=== PATIENT | female | born 1985 | race Caucasian/White ===

== ENCOUNTER → 2016-11-25 | Outpatient (CLI) | payer OTHER ==
[~2016-11-25] MED LIST: BCPILLS PO
[2016-11-25 16:59] LABS: URINE APPEARANCE CLOUDY (CLEAR); URINE BILIRUBIN NEG (NEG); URINE COLOR ORANGE; URINE EPITHELIAL CELL AUTO >30 /lpf (0-5); URINE NITRITE POS (NEG); URINE SPECIFIC GRAVITY 1.027 (1.000-1.030); UROBILINOGEN NEG (NEG)
[2016-11-25 17:03] LABS: MANUAL MICROSCOPIC REQUIRED? NO; REVIEW REQ? NO
== END | disposition home or self-care (01) ==
LOC: C.LAB 16:03
PROVIDERS: ATTEND Nurse Practitioner Adult Health
DX: R39.9 Unspecified symptoms and signs involving the genitourinary system (principal)

== ENCOUNTER → 2017-01-21 | Outpatient (CLI) | payer OTHER ==
[~2017-01-21] MED LIST changes: +ALBU18002 INH; +CETI10TA84 PO; +PRENTAB26 PO; +VNTHFA/IN INH
[2017-01-21 15:06] LABS: URINE APPEARANCE CLEAR (CLEAR); URINE BILIRUBIN NEG (NEG); URINE COLOR YELLOW; URINE NITRITE NEG (NEG); URINE PH 5.5 (4.5-7.5); URINE SPECIFIC GRAVITY 1.023 (1.000-1.030); UROBILINOGEN NEG (NEG)
[2017-01-21 15:09] LABS: MANUAL MICROSCOPIC REQUIRED? NO; REVIEW REQ? NO
== END | disposition home or self-care (01) ==
LOC: C.LABSPEC 13:55
PROVIDERS: ATTEND Obstetrics & Gynecology
DX: Z34.90 Encounter for supervision of normal pregnancy, unspecified, unspecified trimester (principal)

== ENCOUNTER → 2017-01-28 | Outpatient (CLI) | payer OTHER ==
[2017-01-28 12:23] LABS: BASO % 0.3 %; BASO ABS # 0.02 K/uL (0-0.2); COMPLETE YES; EOS % 2.4 %; HEMATOCRIT 39.5 % (37-47); IG% 0.3 %; LYMPH % 30.9 %; LYMPH ABS # 2.28 K/uL (1.2-3.4); MEAN CORPUSCULAR HEMOGLOBIN 31.3 pg (25-34); MEAN CORPUSCULAR HGB CONC 35.2 g/dl (32-36); MEAN PLATELET VOLUME 11.7 fL (7.4-10.4); MONO % 6.4 %; NEUT % 59.7 %; PLATELET COUNT 279 K/uL (130-400); RED BLOOD COUNT 4.44 M/uL (4.2-5.4); WHITE BLOOD COUNT 7.39 K/uL (4.8-10.8)
[2017-02-01 00:01] LABS: CHLAMYDIA TRACH RNA*** NOT DETECTED (NOT DETECTED); GC (NEIS GONORRHOEAE)RNA** NOT DETECTED (NOT DETECTED)
== END | disposition home or self-care (01) ==
LOC: C.LAB1850 10:44
PROVIDERS: ATTEND Obstetrics & Gynecology
DX: Z34.90 Encounter for supervision of normal pregnancy, unspecified, unspecified trimester (principal)

== ENCOUNTER → 2017-03-28 | Outpatient (CLI) | payer OTHER ==
[2017-03-28 13:28] LABS: GTGD 50 Grams
== END | disposition home or self-care (01) ==
LOC: C.LAB1850 09:21
PROVIDERS: ATTEND Obstetrics & Gynecology
DX: Z34.90 Encounter for supervision of normal pregnancy, unspecified, unspecified trimester (principal)

== ENCOUNTER → 2017-06-20 | Outpatient (CLI) | payer OTHER ==
[~2017-06-20] MED LIST changes: -ALBU18002 INH; -CETI10TA84 PO; -PRENTAB26 PO; -VNTHFA/IN INH
[2017-06-20 11:18] LABS: URINE APPEARANCE CLEAR (CLEAR); URINE BILIRUBIN NEG (NEG); URINE COLOR DK YELLOW; URINE EPITHELIAL CELL AUTO >30 /lpf (0-5); URINE NITRITE NEG (NEG); URINE SPECIFIC GRAVITY 1.025 (1.000-1.030); UROBILINOGEN NEG (NEG)
[2017-06-20 11:25] LABS: MANUAL MICROSCOPIC REQUIRED? NO; REVIEW REQ? NO
[2017-06-20 12:19] LABS: HEMATOCRIT 35.1 % (37-47)
[2017-06-20 13:10] LABS: GTGD 50 Grams
== END | disposition home or self-care (01) ==
LOC: C.LAB1850 09:37
PROVIDERS: ATTEND Obstetrics & Gynecology
DX: Z34.82 Encounter for supervision of other normal pregnancy, second trimester (principal)

== ENCOUNTER → 2017-08-10 | Outpatient (CLI) | payer OTHER ==
[~2017-08-10] MED LIST changes: +ALBU18002 INH; +CETI10TA84 PO; +PRENTAB26 PO; +VNTHFA/IN INH
== END | disposition home or self-care (01) ==
LOC: C.LABSPEC 17:31
PROVIDERS: ATTEND Obstetrics & Gynecology
DX: Z34.83 Encounter for supervision of other normal pregnancy, third trimester (principal)

== ENCOUNTER 2017-08-12 02:31 | Emergency (ER) | payer OTHER ==
[~2017-08-12] VITALS: Ht 170.2 cm; Wt 105.0 kg
[~2017-08-12 02:31] MED LIST changes: -ALBU18002 INH; -CETI10TA84 PO; -PRENTAB26 PO; -VNTHFA/IN INH
[2017-08-12 02:35] VITALS: TEMP 36.7; Ht 170.2 cm; Wt 105.0 kg
[2017-08-12] MEDS ORDERED: PRENTAB26 PO (02:48)
[2017-08-12] MEDS ORDERED: CETI10TA84 PO (02:48)
[2017-08-12] MEDS ORDERED: VNTHFA/IN INH (02:49)
[2017-08-12 02:55] VITALS: BP 117/79; PULSE 104; O2SAT 99
[2017-08-12] MEDS ORDERED: ALBU18002 INH (02:56)
--- NOTE | 2017-08-12 05:43 | EMERGENCY ROOM VISIT NOTE ---
ED Visit Note First contact with patient: 02:38 CHIEF COMPLAINT: Body Fluid exposure HPI: This 31 yo presents to the Emergency Department for evaluation of a body fluid exposure he was accepting got stuck with a dirty needle. Patient was trying blood and accidentally stuck herself with a needle. The wound has already been cleansed. Bleeding is controlled. They deny numbness, tingling, or loss of motion. Source patient is known and consents to baseline testing. History of the source patient is not known at this time. The patient works at [employer]. They have had the hepatitis B. vaccination, and titers are positive. They believe their tetanus is up-to-date. Pain is 0/10. ALLERGIES: Sulfa, iodine MEDICATIONS: PMH: Asthma SOCIAL HISTORY: No drug use Physical Exam: VITALS: Nursing notes reviewed and vitals are stable. GENERAL: Pleasant female, in no acute distress, well developed, well nourished. SKIN: Warm and dry with good turgor. no abrasions. There is a solitary puncture lucille present at the left second finger. Bleeding is controlled. No edema. Capillary refill is 2+. MUSCULOSKELETAL: Patient has full active range of motion of the finger. Normal strength. NEURO: Gross sensation is intact across the finger. ED COURSE: I examined the patient. Option of HIV, hepatitis C, and hepatitis B testing was discussed with the patient. The risks, benefits, purpose, and limitations of the tests were explained to the patient and all of their questions were answered. They elected to proceed. I did perform pretest counseling and the appropriate consent forms were signed. Patient was given information on prevention of exposure and transmission as well as hospital confidentiality. Blood exposure handout was provided. The patient's blood was drawn. Risks and benefits of HIV prophylaxis were discussed with the patient. The patient elected to not to have HIV prophylaxis at this time. They will follow-up with employee health. Wound care instructions were provided. Baseline HIV testing was done on the patient and is negative. The patient was discharged in stable condition. Impression: #1 Body fluid exposure, needlestick #2 work-related injury Plan: Follow up with employee health for further evaluation, treatment, and test results. Problem List Surgical Problems: (1) H/O LEEP Status: Resolved Current/Historical Medications Scheduled Multivit/Min/Iron/Fol Ac/Pren ( Vitamin), 1 TAB PO DAILY Scheduled PRN Albuterol Sulfate (Proair Respiclick), 2 PUFFS INH QID PRN for SOB/Wheezing Cetirizine (Zyrtec), 10 MG PO DAILY PRN for allergies Allergies Coded Allergies: Clindamycin (Verified Allergy, Unknown, rash, 08/12/17) Iodine (Verified Allergy, Unknown, hives, 08/12/17) Sulfa Antibiotics (Verified Allergy, Unknown, rash, 08/12/17) Vital Signs Date Time Temp Pulse Resp B/P (MAP) Pulse Ox O2 Delivery O2 Flow Rate FiO2 08/12/17 02:55 104 16 117/79 99 Room Air 08/12/17 02:35 36.7 110 20 120/82 98 Room Air Departure Information Referrals Chasity Morrison C.R.NTuanPTuan (PCP) Patient Instructions My [facility]
== END 2017-08-12 03:00 | disposition home or self-care (01) ==
LOC: C.EDB 02:32
DX: Z77.21 Contact with and (suspected) exposure to potentially hazardous body fluids (principal); S61.231A Puncture wound without foreign body of left index finger without damage to nail, initial encounter; J45.909 Unspecified asthma, uncomplicated; W46.1XXA Contact with contaminated hypodermic needle, initial encounter; Y99.0 Civilian activity done for income or pay; Y92.239 Unspecified place in hospital as the place of occurrence of the external cause

== ENCOUNTER 2017-09-07 04:48 | Inpatient (IN) | payer OTHER ==
[~2017-09-07] VITALS: Ht 170.2 cm; Wt 111.0 kg
[~2017-09-07 04:48] MED LIST changes: +ALBU18002 INH; -BCPILLS PO; +CETI10TA84 PO; +PRENTAB26 PO
[2017-09-08] MEDS ORDERED: LACTATED RINGER'S 1000ML 1,000 ML IV PRN (08:19)
[2017-09-08] MEDS ORDERED: LACTATED RINGER'S 1000ML 500 ML IV PRN ×2 (08:19→12:23)
[2017-09-08] MEDS ORDERED: OXYTOCIN 30 UNITS/500ML NSS IV PRN ×2 (08:30→21:45)
[2017-09-08 08:50] LABS: HEMATOCRIT 35.9 % (37-47); MEAN CELL VOLUME 90.2 fL (80-100); MEAN CORPUSCULAR HEMOGLOBIN 29.9 pg (25-34); MEAN CORPUSCULAR HGB CONC 33.1 g/dl (32-36); MEAN PLATELET VOLUME 11.6 fL (7.4-10.4); PLATELET COUNT 224 K/uL (130-400); RED BLOOD COUNT 3.98 M/uL (4.2-5.4); WHITE BLOOD COUNT 12.39 K/uL (4.8-10.8)
[2017-09-08 09:00] VITALS: Ht 170.2 cm; Wt 111.0 kg
[2017-09-08] MEDS: LACTATED RINGER'S 1000ML 1,000 ML IV SCH ×3 (10:00→17:55)
[2017-09-08] MEDS ORDERED: EpHEDrine SULFATE INJ 50 MG/ML AMP ONE ×2 (11:12→19:16)
[2017-09-08] MEDS ORDERED: FENTANYL 2MCG/ML ROPIV 1.25MG/ML 100ML BAG EPI ONE ×2 (11:12→19:16)
[2017-09-08] MEDS ORDERED: BUPIVACAINE 0.25% 30 ML VIAL ONE ×2 (11:12→19:16)
[2017-09-08] MEDS ORDERED: FENTANYL CITRATE INJ 50 MCG/1 ML 2 ML VIAL ONE ×2 (11:13→19:17)
[2017-09-08] MEDS ORDERED: NALOXONE HCL INJ 1 MG in SODIUM CHLORIDE 0.9% 1000ML 1,000 ML IV PRN (12:23)
[2017-09-08] MEDS ORDERED: ONDANSETRON INJ 2 MG/ML 2 ML VIAL IV PRN (12:30)
[2017-09-08] MEDS ORDERED: NALOXONE HCL INJ 0.4 MG/1 ML VIAL/CARP IV PRN (12:30)
[2017-09-08] MEDS ORDERED: EpHEDrine SULFATE INJ 50 MG/ML AMP IV PRN (12:30)
[2017-09-08] MEDS ORDERED: DiphenhydrAMINE HCL 50 MG/ML VIAL IV PRN (12:30)
[2017-09-08] MEDS ORDERED: NALBUPHINE HCL INJ 10 MG/ML AMP IV PRN (12:30)
[2017-09-08] MEDS: FENTANYL 2MCG/ML ROPIV 1.25MG/ML 100ML BAG EPI PRN ×2 (18:52→19:27)
[2017-09-08] MEDS ORDERED: HYDROCORTISONE ACETATE 25 MG SUPP PR PRN (21:45)
[2017-09-08] MEDS ORDERED: LANOLIN OINT EXT PRN ×2 (21:45)
[2017-09-08] MEDS ORDERED: BENZOCAINE 20% AER SPR 82.5 GM CAN EXT PRN (21:45)
[2017-09-08] MEDS ORDERED: DIPHTHERIA/TETANUS/PERTUSSIS 0.5 ML SYR/VIAL IM. ONE (21:45)
[2017-09-08] MEDS ORDERED: ACETAMINOPHEN 325 MG TAB PO PRN (21:45)
[2017-09-08] MEDS ORDERED: SUPERCREAM 0.870 % 15GM JAR EXT PRN (21:45)
--- NOTE | 2017-09-08 22:19 | Anesthesia Procedure Note ---
Anesthesia Epidural Removal Nt Date & Time Sep 08, 2017 at 22:18 Vital Signs Pain Intensity: 0.0 Notes Mental Status: alert / awake / arousable, participated in evaluation Nausea / Vomiting: adequately controlled Pain: adequately controlled Airway Patency, RR, SpO2: stable & adequate BP & HR: stable & adequate Hydration State: stable & adequate Neuraxial Anesthesia: was administered, sensory block is resolving Anesthetic Complications: no major complications apparent, pt satisfied with anesthetic care Epidural: removed without complications, with tip intact
--- NOTE | 2017-09-08 23:03 | DELIVERY SUMMARY ---
DATE OF OPERATION: 09/08/2017 PREOPERATIVE DIAGNOSES: 1. Intrauterine at 40-1/7 weeks. 2. History of previous ksnpc-gec-odjdgnemxfy-age baby. 3. History of previous shoulder dystocia in prior . 4. History of hemorrhage in previous . POSTOPERATIVE DIAGNOSES: Same. PROCEDURE: 1. Pitocin augmentation. 2. Spontaneous rupture of membranes. 3. Epidural anesthesia. 4. Normal spontaneous vaginal delivery. SURGEON: Bobbi Gudino MD. ANESTHESIA: Epidural. ESTIMATED BLOOD LOSS: 350 mL DESCRIPTION OF PROCEDURE: The patient presented to labor and delivery at 3:50, -2, soft and mid. She was begun on Pitocin augmentation. She underwent spontaneous rupture of membranes for clear fluid. When she was uncomfortable, she underwent an epidural anesthesia. Through the course of the labor, she had an IUPC placed to adequately dose Pitocin and a scalp electrode to better monitor the heart rate. She then progressed to complete-complete and +2 station, pushed over 2 contractions to deliver a viable female infant in direct occiput posterior presentation that restituted to MABEL. The anterior shoulder and body were then immediately and easily delivered. There was an immediate cry. The nose and mouth were bulb suctioned. The was placed on the maternal abdomen for drying and attention. At 1 minute of life, the cord was clamped and cut. Cord blood and segment were obtained. Placenta was delivered spontaneously intact with a 3-vessel cord. Cervix, sulci, rectum and perineum were all examined and found to be intact. Hemostasis obtained with dilute Pitocin and fundal massage. Estimated blood loss 350 mL. Apgars 8 and 9, weight pending. Mother and baby doing well at the end of the delivery. I attest to the content of the Intraoperative Record and any orders documented therein. Any exception s are noted below.
[2017-09-08] MEDS: IBUPROFEN 600 MG TAB PO PRN (23:05)
[2017-09-08 23:45] VITALS: BP 113/72; PULSE 96; TEMP 36.6
[2017-09-09] MEDS: OXYCODONE/ACETAMINOPHEN 5-325 TAB PO PRN ×3 (02:53→21:29)
[2017-09-09 04:30] VITALS: BP 106/71; PULSE 73; TEMP 36.5
[2017-09-09 06:53] LABS: HEMATOCRIT 32.7 % (37-47)
--- NOTE | 2017-09-09 07:02 | OB/GYN Progress Note ---
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 Subjective conversation w/ patient, physical exam, chart review, lab review Ambulation: ambulating normally Voiding: no voiding problems Passing Gas: Yes Diet Tolerance: Regular Diet Lochia: Small Feeding Type: Breast Feeding Pain: mild pain Review of Systems Constitutional: No fever, No chills Respiratory: No shortness of breath Cardiac: No chest pain Abdomen: No nausea, No vomiting Female : No dysuria Objective Vital Signs Date Time Temp Pulse Resp B/P (MAP) Pulse Ox O2 Delivery O2 Flow Rate FiO2 09/09/17 04:30 36.5 73 20 106/71 (83) 09/08/17 23:45 36.6 96 20 113/72 (86) Physical Exam General Appearance: WELL-APPEARING Respiratory/Chest: lungs clear, normal breath sounds Cardiovascular: regular rate, rhythm Abdomen: normal bowel sounds, non tender, soft Fundus: Firm, Relation to Umbilicus (1 FB below) Extremities: non-tender, no pedal edema Laboratory Results Last 24 Hours Test 09/08/17 08:30 09/09/17 06:34 White Blood Count 12.39 K/uL Red Blood Count 3.98 M/uL Hemoglobin 11.9 g/dL 10.9 g/dL Hematocrit 35.9 % 32.7 % Mean Corpuscular Volume 90.2 fL Mean Corpuscular Hemoglobin 29.9 pg Mean Corpuscular Hemoglobin Concent 33.1 g/dl RDW Standard Deviation 46.3 fL RDW Coefficient of Variation 14.2 % Platelet Count 224 K/uL Mean Platelet Volume 11.6 fL Assessment and Plan Day Number: 1 Continue Routine Care: A/P: This is a 31 y/o female, , s/p [normal vaginal delivery] day 1. She is ambulating and clinically stable. Plan: - Vitals signs are reviewed and WNL (Tmax 36.5 ) - Last Hgb is 10.9 - Blood type A+, GBS neg, Rubella Immune - Routine care - Encourage ambulation, monitor and control pain with medication as needed, continue with regular diet as tolerated and monitor lochia - Stool softeners and sitz bath recommended - Encourage breast feeding and educate about breast feeding Resident Physician Supervision Note: I interviewed and examined the patient. Discussed with Dr. James and agree with findings and plan as documented in the note. Any exceptions or clarifications are listed here: Doing well, routine care. Documented By: Bobbi Gudino Resident Involvement: Resident Care Provided Care Provided: OB Delivery
--- NOTE | 2017-09-09 07:07 | Discharge Instructions ---
Discharge Instructions Date of Service Sep 09, 2017. Admission Reason for Admission: Induction Discharge Discharge Diagnosis / Problem: after vaginal delivery Discharge Goals Goal(s): Routine recovery after delivery Medications Continue Dispensed Medications: supercream, dermaplast, tucks, lansinoh Activity Recommendations Activity Limitations: per Instructions/Follow-up section . Instructions / Follow-Up Instructions / Follow-Up ACTIVITY RECOMMENDATIONS: * Gradual return to full activity over the next 2-3 weeks. * No lifting - nothing heavier than baby over the next 2-3 weeks. * Do not engage in vigorous exercise, sexual activity or sports until cleared by your physician. * Do not drive or operate any motorized equipment until cleared by your physician. * You may shower/bathe daily. MEDICATIONS: For discomfort or pain, you may use Acetaminophen (Tylenol), Ibuprofen (Advil), or Naproxen (Aleve) following the package directions. For constipation you may use Colace following the package directions. BREAST CARE: If you are not breast feeding: * Wear a supportive bra 24 hours a day for one to two weeks. * Avoid stimulating your breasts and nipples as much as possible during the first few weeks after delivery. * When taking a shower, have the warm water hit your back, not breasts. * When your breasts feel full, apply ice packs. Usually three to four times a day helps ease the discomfort. * Take a mild pain medication (Tylenol / Motrin) when you are uncomfortable. If breast feeding: * Use breast milk to lubricate nipples. Lansinoh cream may be used for sore nipples. You do not need to remove cream prior to breast feeding. If using a different brand of cream, check the label for directions regarding removal of cream prior to nursing. * Wear a supportive bra. * If having problems with breasts or breast feeding, call a database reporting consultant or your health care provider. EPISIOTOMY CARE: After delivery, if you have an episiotomy (stitches), the following steps will ease discomfort and aid healing. * For the first 24 hours after delivery, place ice packs next to your episiotomy to help reduce swelling. * After the first 24 hour-period, sitz baths, either portable or in the tub, are suggested. A shower with a shower arm sprayed over the episiotomy may be comforting. * Rosa Maria care should be done after each voiding and bowel movement. Squirt warm water from a plastic bottle over the perineum (region of the body between the anus and urinary opening) and pat dry. * Use Dermoplast to ease discomfort. Shake container. [place] directly over the episiotomy. Place a Tucks on a clean sanitary pad next to your episiotomy. SPECIAL CARE INSTRUCTIONS: When you are discharged from the hospital, it is important for you to follow the instructions listed below: * During the first week at home, you should be able to care for yourself and your baby. In addition, the usual light household activities are encouraged. * Limit your activities to the way you feel. Do not try to clean the house or move furniture. Be sensible. * If you actively engage in sports and have done so up until the time of your delivery, you may resume these activities as soon as you feel able. This may take up to one month or even longer. Use good judgment. * Continue to take your vitamins for at least six weeks after the of your baby. * Your diet need not be limited unless you were on a special diet before your delivery. Breast-feeding mothers need around 2500 calories per day and at least 64-80 ounces of fluid per day (8 to 10 glasses). * You should eat foods from the four major food groups. Crash diets or fad diets are to be avoided. Eating lean meats, fresh fruits and vegetables, low-fat dairy products, high fiber foods and a regular exercise program, will help you get back to your pre- weight without putting your health at risk. * Constipation is sometimes a problem after delivery. Take a mild laxative as needed. If breast feeding, Milk of Magnesia is acceptable to use. You may use a suppository or Fleets enema if no episiotomy. * A daily shower or tub bath is suggested. Be sure to thoroughly and gently dry the perineum. * A bloody vaginal discharge will usually continue until around four weeks post . A small amount of bleeding may continue for as long as six weeks. Vaginal discharge changes from the bright red bleeding after delivery to pink then brownish and finally yellowish-pink before becoming white and disappearing. * Bleeding may increase with activity. Your first period may come in 4-8 weeks. If you are breast feeding, your period may be delayed even longer. * [place] (sex) can begin whenever both you and your partner feel comfortable and do not have any form of genital infection. It is recommended that you wait at least six weeks for internal and external healing to occur. If you have questions, please talk to your health care practitioner. A condom should be used to prevent infection and . * Foreplay, gentle intercourse and lubrication is very important the first several times to prevent pain. A water-based lubricant such as K-Y jelly or Astroglide may be used. * If you have RH negative blood and your baby is RH positive, you will receive RHOGAM by injection prior to discharge. The nurse will give you a card to keep with you that has the date and place that you received RHOGAM after delivery. * During your care, you had a Rubella screen done to check for the presence of rubella antibodies in your blood. If your test was negative, you will receive a Rubella vaccine prior to discharge. This vaccine may cause a fever, soreness at the injection site and flu-like symptoms. If these symptoms persist, notify your health care practitioner. is not advised for one month after a Rubella vaccine. * Verbalizes understanding of car seat law as reviewed with patient nursing. * Car Seat hand-out given and reviewed with patient by nursing. * Shaken baby information reviewed with patient by nursing. Call you doctor if: * Heavy bleeding (saturating several pads an hour) or passing clots the size of your fist. * A fever >101 degrees F (38.3 degrees C) on two occasions four hours apart and /or chills. * Unusual pain in the pelvic or vaginal areas. * "Baby Blues" lasting longer than two weeks. If you have any questions or concerns, call your health care practitioner at . FOLLOW UP VISIT: * Please call the office at to schedule a 6 week examination. It is important you keep this appointment. It is important for you to make arrangements for either yearly or twice yearly check-ups thereafter. Current Hospital Diet Patient's current hospital diet: Regular OB Diet Discharge Diet Recommended Diet: Regular Diet Pending Studies Studies pending at discharge: no Medical Emergencies . Who to Call and When: Medical Emergencies: If at any time you feel your situation is an emergency, please call 911 immediately. . Non-Emergent Contact Non-Emergency issues call your: Transmission Line Engineer Call Non-Emergent contact if: temperature is above 101, your pain is not controlled . . "Provider Documentation" section prepared by Sowmya James. . VTE Core Measure Inpt VTE Proph given/why not?: Treatment not indicated
[2017-09-09 07:18] VITALS: BP 109/73; PULSE 84; TEMP 36.6; O2SAT 96
[2017-09-09] MEDS: PRENATAL VITAMIN TAB PO SCH (08:32)
[2017-09-09] MEDS: DOCUSATE SODIUM 100 MG CAP PO SCH ×2 (08:32→20:08)
[2017-09-09] MEDS: IBUPROFEN 600 MG TAB PO PRN ×3 (08:33→20:09)
[2017-09-09 11:45] VITALS: BP 106/70; PULSE 67; TEMP 36.4; O2SAT 97
[2017-09-09 16:15] VITALS: BP 100/61; PULSE 72; TEMP 36.8
[2017-09-09 20:15] VITALS: BP 107/69; PULSE 92; TEMP 36.6
[2017-09-09 23:45] VITALS: BP 96/66; PULSE 89; TEMP 36.6
[2017-09-10] MEDS: IBUPROFEN 600 MG TAB PO PRN ×2 (02:14→08:14)
[2017-09-10] MEDS: OXYCODONE/ACETAMINOPHEN 5-325 TAB PO PRN (02:16)
[2017-09-10 07:40] VITALS: BP 118/79; PULSE 76; O2SAT 97
--- NOTE | 2017-09-10 07:41 | Progress Note ---
Subjective Sep 10, 2017. Subjective conversation w/ patient, physical exam, chart review Ambulation: ambulating normally Voiding: no voiding problems Diet Tolerance: Regular Diet Lochia: Small Feeding Type: Breast Feeding Objective Vital Signs Date Time Temp Pulse Resp B/P (MAP) Pulse Ox O2 Delivery O2 Flow Rate FiO2 09/09/17 23:45 Room Air 09/09/17 23:45 36.6 89 18 96/66 (76) Room Air 09/09/17 20:15 36.6 92 16 107/69 (82) Room Air 09/09/17 16:15 36.8 72 18 100/61 (74) Room Air 09/09/17 16:15 Room Air 09/09/17 11:45 36.4 67 18 106/70 (82) 97 Room Air 09/09/17 07:45 Room Air Physical Exam General Appearance: WELL-APPEARING Abdomen: non tender Fundus: Firm Extremities: no calf tenderness Assessment and Plan Problem List Medical Problems: (1) Needlestick injury accident with exposure to body fluid Status: Acute (2) Work related injury Status: Acute Post- Day#: 2 Continue Routine Care: home
[2017-09-10] MEDS: PRENATAL VITAMIN TAB PO SCH (08:12)
[2017-09-10] MEDS: DOCUSATE SODIUM 100 MG CAP PO SCH (08:12)
[2017-09-10 09:46] VITALS: BP_DIAS 79; PULSE 76; TEMP 36.6
== END 2017-09-10 10:18 | disposition home or self-care (01) | DRG 775 ==
LOC: C.LD 09-08 07:46 → C.OBG 09-08 23:41
PROVIDERS: ADMIT Obstetrics & Gynecology; ATTEND Obstetrics & Gynecology
PROC: 10H073Z Insertion of Monitoring Electrode into Products of Conception, Via Natural or Artificial Opening (ICD-10-PCS; principal; 2017-09-08)
PROC: 4A1H7CZ Monitoring of Products of Conception, Cardiac Rate, Via Natural or Artificial Opening (ICD-10-PCS; principal; 2017-09-08)
PROC: 10E0XZZ Delivery of Products of Conception, External Approach (ICD-10-PCS; principal; 2017-09-08)
DX: O80 Encounter for full-term uncomplicated delivery (principal); Z3A.40 40 weeks gestation of pregnancy; Z37.0 Single live birth; Z87.59 Personal history of other complications of pregnancy, childbirth and the puerperium

== ENCOUNTER → 2017-10-25 | Outpatient (CLI) | payer OTHER ==
[~2017-10-25] MED LIST changes: +BCPILLS PO
== END | disposition home or self-care (01) ==
LOC: C.PAPS 14:12
PROVIDERS: ATTEND Obstetrics & Gynecology
DX: Z01.419 Encounter for gynecological examination (general) (routine) without abnormal findings (principal)

== ENCOUNTER 2018-06-13 02:27 | Emergency (ER) | payer OTHER ==
[~2018-06-13] VITALS: Ht 170.2 cm; Wt 95.0 kg
[~2018-06-13 02:27] MED LIST changes: -BCPILLS PO
[2018-06-13 02:30] VITALS: TEMP 36.6; Ht 170.2 cm; Wt 95.0 kg
--- NOTE | 2018-06-13 02:48 | EMERGENCY ROOM VISIT NOTE ---
History Report prepared by Lupe: Kamaljit Alvarado Under the Supervision of: Dr. Germaine Bass D.O. First contact with patient: 02:39 Chief Complaint: ABDOMINAL PAIN Stated Complaint: ABD PAIN History of Present Illness The patient is a 32 year old female who presents to the Emergency Room with complaints of right sided and lower abdominal pain that began on Tuesday, 4 days ago. The patient states that the pain started as a lower abdominal "cramping" and intermittent right sided "sharp" sensations. Yesterday morning the pain on the right side became a constant "stabbing." She is nauseous, but has not vomited. She also denies diarrhea and fevers. The patient has lost some appetite. She is 9 months and her menstrual cycles are irregular. Source of History: patient Onset: 4 days ago Position: abdomen (Lower and right) Quality: sharp, stabbing, cramping Timing: constant Associated Symptoms: + nausea, No fevers, No vomiting, No diarrhea Review of Systems See HPI for pertinent positives & negatives. A total of 10 systems reviewed and were otherwise negative. Past Medical & Surgical Medical Problems: (1) 40 weeks gestation of Surgical Problems: (1) H/O LEEP Family History Cancer Diabetes mellitus Heart disease Hypertension Social History Smoking Status: Never Smoker Drug Use: none Marital Status: Housing Status: lives with family Occupation Status: employed Current/Historical Medications Scheduled Control Pills ( Control Pills), 1 TAB PO DAILY Allergies Coded Allergies: Clindamycin (Verified Allergy, Unknown, rash, 06/13/18) Iodine (Verified Allergy, Unknown, hives, 06/13/18) Sulfa Antibiotics (Verified Allergy, Unknown, rash, 06/13/18) Physical Exam Vital Signs Date Time Temp Pulse Resp B/P (MAP) Pulse Ox O2 Delivery O2 Flow Rate FiO2 06/13/18 04:32 69 16 112/69 99 06/13/18 04:05 69 16 112/69 99 Room Air 06/13/18 02:30 36.6 84 18 134/87 99 Room Air Physical Exam HEENT: Head - normocephalic and atraumatic Pupils are equal, round, and reactive to light. Extraocular eye muscles are intact, and sclera are anicteric. Nose - moist nasal mucosa without discharge. Mouth - moist buccal mucosa. Oropharynx is nonerythematous and there is no tonsillar exudate or edema noted. Neck: Supple; no JVD, nuchal rigidity, cervical lymphadenopathy. Heart: Regular rate and rhythm. There is a normal S1 and S2 with no murmurs, clicks, or gallops appreciated. Lungs: Clear to auscultation bilaterally with no wheezes, rales, or rhonchi. Abdomen: Soft, with McBurney's point tenderness. Nondistended, with good bowel sounds. There are no palpable pulsatile masses or hepatosplenomegaly. There is no guarding, rigidity, or rebound noted. Extremities: No evidence of cyanosis, clubbing, or edema. There are easily palpable peripheral pulses. Skin: warm and dry with good turgor and no rashes. Medical Decision & Procedures ER Provider Diagnostic Interpretation: Radiology results as stated below per my review and the radiologist's interpretation: US APPENDIX: A blind-ending tubular structure is noted int he right lower quadrant in the region in the region of reported pain consistent with a normal caliber appendix measuring 5 mm in diameter. No definitive sonographic evidence for acute appendicitis. Please correlate with clinical and laboratory findings. Minimal free fluid in the right lower quadrant incidentally noted. Radiologist: Nahid Rothman MD Laboratory Results 06/13/18 02:45 Red Blood Count 4.76, Mean Corpuscular Volume 89.1, Mean Corpuscular Hemoglobin 31.1, Mean Corpuscular Hemoglobin Concent 34.9, Mean Platelet Volume 11.2, Neutrophils (%) (Auto) 51.1, Lymphocytes (%) (Auto) 40.2, Monocytes (%) (Auto) 5.0, Eosinophils (%) (Auto) 3.3, Basophils (%) (Auto) 0.2, Neutrophils # (Auto) 4.96, Lymphocytes # (Auto) 3.90, Monocytes # (Auto) 0.49, Eosinophils # (Auto) 0.32, Basophils # (Auto) 0.02 06/13/18 02:45 Test 06/13/18 02:45 White Blood Count 9.71 K/uL (4.8-10.8) Red Blood Count 4.76 M/uL (4.2-5.4) Hemoglobin 14.8 g/dL (12.0-16.0) Hematocrit 42.4 % (37-47) Mean Corpuscular Volume 89.1 fL (80-100) Mean Corpuscular Hemoglobin 31.1 pg (25-34) Mean Corpuscular Hemoglobin Concent 34.9 g/dl (32-36) Platelet Count 254 K/uL (130-400) Mean Platelet Volume 11.2 fL (7.4-10.4) Neutrophils (%) (Auto) 51.1 % Lymphocytes (%) (Auto) 40.2 % Monocytes (%) (Auto) 5.0 % Eosinophils (%) (Auto) 3.3 % Basophils (%) (Auto) 0.2 % Neutrophils # (Auto) 4.96 K/uL (1.4-6.5) Lymphocytes # (Auto) 3.90 K/uL (1.2-3.4) Monocytes # (Auto) 0.49 K/uL (0.11-0.59) Eosinophils # (Auto) 0.32 K/uL (0-0.5) Basophils # (Auto) 0.02 K/uL (0-0.2) RDW Standard Deviation 43.4 fL (36.4-46.3) RDW Coefficient of Variation 13.2 % (11.5-14.5) Immature Granulocyte % (Auto) 0.2 % Immature Granulocyte # (Auto) 0.02 K/uL (0.00-0.02) Urine Color YELLOW Urine Appearance CLEAR (CLEAR) Urine pH 5.0 (4.5-7.5) Urine Specific [place] 1.025 (1.000-1.030) Urine Protein NEG (NEG) Urine Glucose (UA) NEG (NEG) Urine Ketones NEG (NEG) Urine Occult Blood NEG (NEG) Urine Nitrite NEG (NEG) Urine Bilirubin NEG (NEG) Urine Urobilinogen NEG (NEG) Urine Leukocyte Esterase NEG (NEG) Urine Test NEG (NEG) Anion Gap 10.0 mmol/L (3-11) Est Creatinine Clear Calc Drug Dose 119.5 ml/min Estimated GFR () 113.1 Estimated GFR (Non- 97.6 BUN/Creatinine Ratio 17.1 (10-20) Calcium Level 8.6 mg/dl (8.5-10.1) Total Bilirubin 0.3 mg/dl (0.2-1) Direct Bilirubin < 0.1 mg/dl (0-0.2) Aspartate Amino Transf (AST/SGOT) 15 U/L (15-37) Alanine Aminotransferase (ALT/SGPT) 27 U/L (12-78) Alkaline Phosphatase 95 U/L (45-117) Total Protein 8.8 gm/dl (6.4-8.2) Albumin 4.2 gm/dl (3.4-5.0) Lipase 144 U/L (73-393) Laboratory results per my review. ED Course 0239: Past medical records reviewed. The patient was evaluated in room B2. A complete history and physical exam was performed. An IV lock was initiated and labs were drawn as above. A urine specimen was obtained. She went for ultrasound of the right lower quadrant of the abdomen. 0327: I checked on the patient at this time. She is feeling well and does not want anything for pain. 0421: I checked on the patient at this time. She is comfortable and awaiting US results. 0434: Upon reevaluation, the patient is resting in bed. I discussed findings and results with her. She verbalized agreement of the treatment plan. The patient was discharged home. Medical Decision The patient is a 32 year old female who presents to the Emergency Department with lower and right sided abdominal pain. Differential diagnosis includes appendicitis, ectopic, colitis, pyelonephritis, cystitis, renal colic, and ovarian torsion. Laboratory results were reviewed and show; normal renal function, normal glucose , normal LFTs and Lipase, no leukocytosis, and stable H&H. Urinalysis was reviewed and shows; negative . The patient remained comfortable while here in the emergency department. Ultrasound shows no acute evidence of appendicitis. I instructed the patient to rest over the next couple of days and avoid strenuous activity. If her symptoms worsen, she is to return here to the emergency department. If the pain persists, she should follow-up with her PCP. Medication Reconcilliation Current Medication List: was personally reviewed by me Blood Pressure Screening Patient's blood pressure: Normal blood pressure Impression Primary Impression: Right lower quadrant abdominal pain Scribe Attestation The scribe's documentation has been prepared under my direction and personally reviewed by me in its entirety. I confirm that the note above accurately reflects all work, treatment, procedures, and medical decision making performed by me. Departure Information Dispostion Home / Self-Care Referrals Chasity Morirson C.R.N.P. (PCP) Forms Call Back Authorization, HOME CARE DOCUMENTATION FORM, IMPORTANT VISIT INFORMATION Patient Instructions My [facility] [employer] Additional Instructions Rest. Take a bland diet. No strenuous activity for next couple of days Motrin for pain Return to the ER for worsening symptoms
[2018-06-13 02:58] LABS: BASO % 0.2 %; BASO ABS # 0.02 K/uL (0-0.2); EOS % 3.3 %; EOS ABS # 0.32 K/uL (0-0.5); HEMATOCRIT 42.4 % (37-47); HEMOGLOBIN 14.8 g/dL (12.0-16.0); IG# 0.02 K/uL (0.00-0.02); LYMPH % 40.2 %; MEAN CELL VOLUME 89.1 fL (80-100); MEAN CORPUSCULAR HEMOGLOBIN 31.1 pg (25-34); MEAN CORPUSCULAR HGB CONC 34.9 g/dl (32-36); MEAN PLATELET VOLUME 11.2 fL (7.4-10.4); MONO ABS # 0.49 K/uL (0.11-0.59); NEUT % 51.1 %; NEUT ABS # 4.96 K/uL (1.4-6.5); PLATELET COUNT 254 K/uL (130-400); RED CELL DISTRIBUTION WIDTH CV 13.2 % (11.5-14.5); RED CELL DISTRIBUTION WIDTH SD 43.4 fL (36.4-46.3); WHITE BLOOD COUNT 9.71 K/uL (4.8-10.8)
[2018-06-13 03:18] LABS: ALBUMIN 4.2 gm/dl (3.4-5.0); ALKALINE PHOSPHATASE 95 U/L (45-117); ALT/SGPT 27 U/L (12-78); AST/SGOT 15 U/L (15-37); BLOOD UREA NITROGEN 14 mg/dl (7-18); CALCIUM 8.6 mg/dl (8.5-10.1); CARBON DIOXIDE 23 mmol/L (21-32); GLUCOSE 72 mg/dl (70-99); LIPASE 144 U/L (73-393); POTASSIUM 3.6 mmol/L (3.5-5.1); SODIUM 140 mmol/L (136-145); TOTAL PROTEIN 8.8 gm/dl (6.4-8.2)
[2018-06-13] MEDS ORDERED: BCPILLS PO (04:02)
[2018-06-13 04:32] VITALS: BP 112/69; PULSE 69; O2SAT 99
--- NOTE | 2018-06-13 07:01 | DIAGNOSTIC IMAGING REPORT ---
ABDOMEN LIMITED (US) HISTORY: 32 years-old Female RLQ - eval for appy acute right lower quadrant abdominal pain COMPARISON: CT abdomen and pelvis 06/07/2015 TECHNIQUE: Multiple real-time significant images of the abdominal right lower quadrant were obtained assessing grayscale appearance and color flow FINDINGS: Blind-ending tubular structure is noted within the abdominal right lower quadrant suggesting a normal appendix measuring 5 mm in diameter. No appendiceal wall thickening. No drainable fluid collections, echogenic fat or hyperemia. No adenopathy. Incidental note is made of trace nonspecific free fluid within the abdominal right lower quadrant. IMPRESSION: 1. Normal sonographic appearance of the appendix without evidence of acute appendicitis. 2. Incidental note is made of nonspecific trace free fluid within the abdominal right lower quadrant. The above report was generated using voice recognition software. It may contain grammatical, syntax or spelling errors. Electronically signed by: Rikki Causey M.D. 06/13/2018 6:59 AM Dictated Date/Time: 06/13/2018 6:57 AM
== END 2018-06-13 04:33 | disposition home or self-care (01) ==
LOC: C.EDB 02:28
DX: R10.31 Right lower quadrant pain (principal); R11.0 Nausea; Z79.3 Long term (current) use of hormonal contraceptives; Z88.1 Allergy status to other antibiotic agents; Z88.2 Allergy status to sulfonamides; Z88.8 Allergy status to other drugs, medicaments and biological substances

== ENCOUNTER 2022-03-23 13:24 | Inpatient (IN) ==
[2022-03-23] MEDS ORDERED: OXYTOCIN 30 UNITS/500 ML BAG IV PRN ×2 (18:58)
--- NOTE | 2022-03-23 19:15 | History & Physical Report ---
Date of Service March 23, 2022 Assessment & Plan (1) Supervision of elderly multigravida: Plan: Admit to L&D. EFM/toco. Labs. Pitocin. OK for epidural if/when she desires. Admission and Anticipated Discharge Date Admission Date: March 23, 2022 History of Present Illness Chief Complaint: IOL Primary Care Provider: ROSA PCP 36yo @ 40 02/27, postdates IOL. Covid Vaccine #1 10/10/20 (Pfizer) Covid Vaccine #2 10/31/20 Booster Oct AMA *Weekly NST's @ 36wks. Obesity *32wks ega growth u/s *weekly nst at 36 weeks. Desires PPTL or interval tubal IOL 03/23/22, Covid test 03/19/22 Allergies Allergy/AdvReac Type Severity Reaction Status Date / Time clindamycin Allergy Unknown rash Verified 03/23/22 18:42 iodine Allergy Unknown hives Verified 03/23/22 18:42 Sulfa (Sulfonamide Allergy Unknown rash Verified 03/23/22 18:42 Antibiotics) cat dander Allergy Unknown Verified 03/23/22 18:42 cephalexin [From Keflex] Allergy Rash Verified 03/23/22 18:42 dog dander Allergy Rash Verified 03/23/22 18:42 grass pollen Allergy Rash Verified 03/23/22 18:42 house dust mite Allergy Rash Verified 03/23/22 18:42 mold Allergy Rash Verified 03/23/22 18:42 ragweed pollen Allergy Rash Verified 03/23/22 18:42 sulfabenzamide Allergy rash Verified 03/23/22 18:42 tree and shrub pollen Allergy Rash Verified 03/23/22 18:42 Home Medications Medication Instructions Recorded Confirmed Type epinephrine 0.3 mg/0.3 mL 0.3 ml IM ONCE PRN #1 ea 04/18/19 03/23/22 History injection, auto-injector cetirizine 10 mg capsule (Zyrtec) 10 mg PO DAILY PRN 05/01/20 03/23/22 History valacyclovir 1 gram tablet 2,000 mg PO BID PRN #12 tab 05/05/21 03/23/22 Rx prenat.vits,wang,evf-kytt-fxpay 1 tab PO DAILY 07/30/21 03/23/22 History albuterol sulfate 90 mcg/actuation 2 puff INHALATION Q6H PRN #8.5 g 10/12/21 03/23/22 Rx aerosol inhaler Patient History Medical History (Updated 08/07/21 @ 15:10 by Therese Neal MD, FACOG) Abdominal pain Allergic rhinitis Asthma Chronic RLQ pain Chronic sinusitis Deviated nasal septum Diminished sensation due to laxity of vagina Environmental allergies Female pelvic pain Hemorrhoids Hypertrophy of both inferior nasal turbinates Intrauterine (05/12/11) Left thumb sprain Obesity (BMI 30-39.9) hemorrhage (05/12/11) Seasonal allergies Segmental and somatic dysfunction of abdomen and other regions Shoulder dystocia, delivered (05/12/11) Surgical History H/O LEEP History of colposcopy History of tooth extraction S/P nasal septoplasty Family History Unknown Pure hypercholesterolemia Diabetes Alcohol abuse Anxiety Depression Hypertension Cardiac disorder Father Diabetes Alcohol abuse Hypertension Brother Diabetes Depression Mother Anxiety Sister Anxiety Family/Other Type 1 diabetes mellitus Grandfather (Maternal) Colorectal cancer Denies family history of Ovarian cancer Prostate cancer Myocardial infarction Breast cancer Social History (Updated 07/30/21 @ 09:32 by Kristi Rae) Smoking Status: Never smoker Second Hand Exposure: No; Hx Alcohol Use: No Hx Substance Use: No Preferred Language: Serbian Communication Ability: Effective Visual Impairment: Limited Hearing Ability: Normal Inseminator Required: No Beliefs That Will Affect Care: None marital status: marital status details: Damaso [phone] Current Living Situation: Family Current Living Situation Comment: lives with spouse, and 2 children, 2 dogs. current occupational status: employed current occupation: ER NURSE AT [employer] How many Children do You have: 2 Other Information That Helps Us Care for You: No Feels Safe at Home: Yes Safety Concerns: Feels Safe At This Time Childhood Exposure to Second-Hand Smoke: No caffeine: Yes Dental Care, Regularly: Yes Physical Activity Frequency: Does not Exercise Seatbelt Use: always Sunscreen Use: Yes Assistive Devices: Glasses Review of Systems All systems reviewed & are unremarkable except as noted in HPI & below Physical Exam Physical Exam: FHT Cat 1 [place] irreg SVE 3/80/-2 Constitutional: WD/WN, vitals as above Respiratory: normal respiratory effort, lungs clear to auscultation no respiratory distress Cardiovascular: Rate/Rhythm: regular rate and regular rhythm Gastrointestinal (Abdomen): Inspection/Auscultation: abdomen normal to inspection Percussion/Palpation: abdomen soft; abdomen nontender Gravid. No s/s chorio or abruption. Skin: no rashes, warm and dry Psychiatric: A+Ox3, euthymic affect Results & Data ([facility]) Vital Signs (Past 12 Hours) Vital Signs Temp Pulse Resp BP 03/23/22 18:36 37.2 C 95 H 20 136/80 Coding Level of Care Code None Diagnoses Supervision of elderly multigravida O09.529
[2022-03-23 19:25] LABS: Hemoglobin 10.8 g/dL (12.0-16.0); Mean Corpuscular Hemoglobin 27.5 pg (25-34); Mean Corpuscular Hgb Conc 31.8 g/dL (32-36); Mean Corpuscular Volume 86.5 fL (80-100); Mean Platelet Volume 12.7 fL (7.4-10.4); Platelet Count 324 K/uL (130-400); RDW Coefficient of Variation 14.7 % (11.5-14.5); RDW Standard Deviation 45.9 fL (36.4-46.3); Red Blood Count 3.93 M/uL (4.2-5.4); White Blood Count 11.72 K/uL (4.8-10.8)
[2022-03-23] MEDS: LACTATED RINGER'S 1,000 ML IV PRN ×2 (20:01→21:07)
[2022-03-23] MEDS ORDERED: BUPIVACAINE 0.25% 30 ML VIAL ONE (20:16)
[2022-03-23] MEDS ORDERED: fentaNYL citrate 100 MCG/2 ML VIAL ONE (20:16)
[2022-03-23] MEDS ORDERED: SODIUM CHLORIDE 0.9% INJ 10 ML VIAL ONE (20:16)
[2022-03-23] MEDS ORDERED: ePHEDrine sulfate 50 MG/ML AMP ONE (20:16)
[2022-03-23] MEDS ORDERED: fentaNYL 2MCG/ML ROPIVACAINE 1.25MG/ML 100 ML BAG EPI ONE (20:17)
[2022-03-23] MEDS ORDERED: NALBUPHINE HCL INJ 10 MG/ML AMP IV PRN (21:20)
[2022-03-23] MEDS ORDERED: NALOXONE HCL 0.4 MG/1 ML VIAL/CARP IV PRN (21:20)
[2022-03-23] MEDS ORDERED: NALOXONE HCL 1 MG in SODIUM CHLORIDE 0.9% 1000ML 1,000 ML IV PRN (21:20)
[2022-03-23] MEDS ORDERED: diphenhydrAMINE 50 MG/ML VIAL IV PRN (21:20)
[2022-03-23] MEDS ORDERED: ePHEDrine sulfate 50 MG/ML AMP IV PRN (21:20)
[2022-03-23] MEDS ORDERED: fentaNYL 2MCG/ML ROPIVACAINE 1.25MG/ML 100 ML BAG EPI PRN (21:20)
--- NOTE | 2022-03-23 21:20 | Anesthesiology Consultation ---
Date of Service March 23, 2022 Assessment & Plan Chart Review Chart Review: Acceptable Risk for Surgery and Patient NOT seen in Pre Admission Testing Consults Requested none ASA ASA2E Proposed Anesthesia Anesthesia Type: Labor Epidural Risk / Benefits Reviewed With: PT / POA / Parent / Guardian, Accepts Plan and Informed Consent Obtained History Height/Weight Height: 5 ft 7 in Weight: 124.738 kg Allergies Allergy/AdvReac Type Severity Reaction Status Date / Time clindamycin Allergy Unknown rash Verified 03/23/22 18:42 iodine Allergy Unknown hives Verified 03/23/22 18:42 Sulfa (Sulfonamide Allergy Unknown rash Verified 03/23/22 18:42 Antibiotics) cat dander Allergy Unknown Verified 03/23/22 18:42 cephalexin [From Keflex] Allergy Rash Verified 03/23/22 18:42 dog dander Allergy Rash Verified 03/23/22 18:42 grass pollen Allergy Rash Verified 03/23/22 18:42 house dust mite Allergy Rash Verified 03/23/22 18:42 mold Allergy Rash Verified 03/23/22 18:42 ragweed pollen Allergy Rash Verified 03/23/22 18:42 sulfabenzamide Allergy rash Verified 03/23/22 18:42 tree and shrub pollen Allergy Rash Verified 03/23/22 18:42 Medications Home Medications Medication Instructions Recorded Confirmed Last Taken epinephrine 0.3 mg/0.3 mL 0.3 ml IM ONCE PRN #1 ea 04/18/19 03/23/22 Unknown injection, auto-injector cetirizine 10 mg capsule (Zyrtec) 10 mg PO DAILY PRN 05/01/20 03/23/22 03/23/22 08:00 valacyclovir 1 gram tablet 2,000 mg PO BID PRN #12 tab 05/05/21 03/23/22 Unknown prenat.vits,wang,[id number]-[id number] 1 tab PO DAILY 07/30/21 03/23/22 03/23/22 08:00 albuterol sulfate 90 mcg/actuation 2 puff INHALATION Q6H PRN #8.5 g 10/12/21 03/23/22 Unknown aerosol inhaler Active Medications Generic Name Dose Route Start Last Admin Trade Name Freq PRN Reason Stop Dose Admin Lactated Ringer's 1,000 mls @ 125 mls/hr 03/23/22 18:58 03/23/22 21:07 Lr IV 03/25/22 18:57 125 mls/hr .Q8H PRN Administration L&D Protocol Protocol Past Medical History Medical History (Updated 08/07/21 @ 15:10 by Therese Neal MD, FACOG) Abdominal pain Allergic rhinitis Asthma Chronic RLQ pain Chronic sinusitis Deviated nasal septum Diminished sensation due to laxity of vagina Environmental allergies Female pelvic pain Hemorrhoids Hypertrophy of both inferior nasal turbinates Intrauterine (05/12/11) Left thumb sprain Obesity (BMI 30-39.9) hemorrhage (05/12/11) Seasonal allergies Segmental and somatic dysfunction of abdomen and other regions Shoulder dystocia, delivered (05/12/11) Past Family History Family History Unknown Pure hypercholesterolemia Diabetes Alcohol abuse Anxiety Depression Hypertension Cardiac disorder Father Diabetes Alcohol abuse Hypertension Brother Diabetes Depression Mother Anxiety Sister Anxiety Family/Other Type 1 diabetes mellitus Grandfather (Maternal) Colorectal cancer Denies family history of Ovarian cancer Prostate cancer Myocardial infarction Breast cancer Past Surgical History Surgical History H/O LEEP History of colposcopy History of tooth extraction S/P nasal septoplasty Social History Smoking Status: Never smoker Hx Alcohol Use: No Hx Substance Use: No Physical Exam Vital Signs Last Vital Signs Temp 36.6 C 03/23/22 19:08 Pulse 100 H 03/23/22 21:17 Resp 18 03/23/22 19:08 BP 119/63 03/23/22 21:17 Pulse Ox 99 03/23/22 21:15 Testing Laboratory Results 03/23/22 19:06 Blood Type A Positive 03/23/22 19:06 Antibody Screen NEGATIVE 03/23/22 19:06
--- NOTE | 2022-03-23 22:09 | Labor Progress Brief Note ---
Date of Service March 23, 2022 Subjective Comfortable with epidural. FHT cat 1 [place] Q 2-3 SVE 4/80/-1 AROM clear. IUPC, FSE placed. Continue labor. Assessment & Plan Admission and Anticipated Discharge Date Admission Date: March 23, 2022 Results & Data ([facility]) Vital Signs (Past 12 Hours) Vital Signs Temp Pulse Resp BP Pulse Ox 03/23/22 22:00 89 100 03/23/22 21:56 106 H 129/75 03/23/22 21:55 104 H 100 03/23/22 21:50 96 H 100 03/23/22 21:45 98 H 100 03/23/22 21:42 126 H 127/71 03/23/22 21:40 117 H 100 03/23/22 21:35 97 H 100 03/23/22 21:30 128 H 100 03/23/22 21:25 92 H 100 03/23/22 21:22 112 H 125/68 03/23/22 21:20 87 18 99 03/23/22 21:17 100 H 119/63 03/23/22 21:16 18 03/23/22 21:15 87 117/58 L 99 03/23/22 21:14 18 03/23/22 21:13 104 H 126/67 03/23/22 21:12 18 03/23/22 21:11 100 H 120/65 03/23/22 21:10 104 H 18 100 03/23/22 21:09 93 H 111/60 03/23/22 21:08 18 03/23/22 21:07 95 H 132/73 03/23/22 21:06 18 03/23/22 21:05 97 H 100 03/23/22 21:04 88 129/75 03/23/22 19:08 36.6 C 18 03/23/22 18:36 37.2 C 95 H 20 136/80 Coding Level of Care Code None
[2022-03-24] MEDS ORDERED: IBUPROFEN 600 MG TAB PO ONE (03:07)
--- NOTE | 2022-03-24 03:16 | Delivery Summary ---
Vaginal Delivery Summary Date of Service March 24, 2022 Vaginal Delivery Summary and 1st Degree LAC Vaginal Delivery Summary: Pre-delivery diagnoses: 36yo @ 40 6/7, IOL for postdates, AMA, obesity, h/o shoulder dystocia in G1 Post-delivery diagnoses: same Procedure: spontaneous vaginal delivery, repair of 1st degree perineal laceration Surgeon: Honey Lamas DO Complications: none Findings: Viable . Apgars: 7/9. Weight pending, please see nursery records Estimated blood loss: 300ml Description of delivery: The patient progressed to complete with epidural anesthesia. She then began to push. She spontaneously vaginally delivered a viable from the cephalic presentation. The head delivered in occiput posterior position, then restituted to MABEL. Nuchal x 2 reduced easily. The anterior shoulder delivered, followed by the posterior shoulder, followed by the body. The baby was placed on mother's abdomen and a spontaneous cry was heard. The cord was doubly clamped and cut. A segment was retained for cord gases. Cord blood was obtained. The placenta was delivered spontaneously intact with a 3-vessel cord. The uterus and vagina were swept of clots and debris. IV pitocin was given. The uterus became firm. The cervix, vagina, and perineum were inspected and a 1st degree perineal laceration was noted and repaired in standard fashion with 3-0 Vicryl. Excellent hemostasis was observed. The mother and baby are recovering in stable and good condition in the room. Sponge, needle and instrument counts were correct x 2. Honey Lamas DO [facility] Vaginal Delivery Charge Vaginal Delivery Codes: 06513 global code for the antepartum, delivery, and post- Delivery Type Details: and 1st Degree LAC
[2022-03-24] MEDS ORDERED: DIPHTHERIA/TETANUS/PERTUSSIS 0.5 ML SYR/VIAL IM ONE (03:25)
[2022-03-24] MEDS ORDERED: ACETAMINOPHEN 325 MG TAB PO PRN (03:25)
[2022-03-24] MEDS ORDERED: HYDROCORTISONE ACETATE 25 MG SUPP PR PRN (03:25)
[2022-03-24] MEDS ORDERED: OXYTOCIN 30 UNITS/500 ML BAG IV PRN (03:25)
[2022-03-24] MEDS ORDERED: ALBUTEROL HFA 8 GM INHALER INH PRN (03:25)
[2022-03-24] MEDS ORDERED: bisacodyL 10 MG SUPP PR PRN (03:25)
[2022-03-24 03:38] LABS: Base Excess Cord Arterial Bld -8.2 mEq/L (-9-1.8); Base Excess Cord Venous Blood -6.8 mEq/L (-7.7-1.9); CO2 Cord Arterial Blood 62 mmHg (39.1-73.5); Cord Venous Blood HCO3 20 mmol/L (18.4-26.8); Cord Venous Blood PCO2 46 mmHg (30.4-57.2); Cord Venous Blood PO2 23 mmHg (14.1-43.3); Cord Venous Blood pH 7.26 (7.20-7.44); HCO3 Cord Arterial Blood 22 mmol/L (19.7-28.5); Oxygen Sat Cord Arterial Blood < 60.0 % (<60); PO2 Cord Arterial Blood 13 mmHg (4.1-31.7); pH Cord Arterial Blood 7.16 (7.1-7.38)
[2022-03-24 03:39] LABS: O2 Saturation Cord Venous Bld < 60.0 % (<68)
[2022-03-24] MEDS: BENZOCAINE 20% AER SPR 82.5 GM CAN EXT PRN ×2 (03:55→07:55)
[2022-03-24] MEDS: oxyCODONE/ACETAMINOPHEN 5mg/325mg TAB PO PRN ×2 (03:55→11:13)
--- NOTE | 2022-03-24 05:38 | Anesthesia Procedure Note ---
Date of Service March 24, 2022 Anesthesia Post Epidural Note Vital Signs Vital Signs: Temp Pulse Resp BP Pulse Ox 37.0 C 96 H 18 130/80 97 03/24/22 04:45 03/24/22 04:53 03/24/22 04:45 03/24/22 04:53 03/24/22 02:34 Pain Intensity Lower Abdomen: Pain Intensity: 7 Notes Mental Status: alert / awake / arousable Nausea / Vomiting: adequately controlled Pain: adequately controlled Airway Patency, RR, SpO2: stable & adequate BP & HR: stable & adequate Hydration State: stable & adequate Neuraxial Anesthesia: was administered and sensory block is resolving Anesthetic Complications: no major complications apparent and Pt Satisfied with anesthetic care Epidural: Removed without complications and With tip intact
[2022-03-24] MEDS: IBUPROFEN 600 MG TAB PO PRN ×5 (06:45→23:21)
[2022-03-24] MEDS: PRENATAL VITAMIN 1 TAB PO SCH (07:55)
[2022-03-24] MEDS: CETIRIZINE HCL 10 MG TABLET PO PRN (07:55)
[2022-03-24] MEDS: DOCUSATE SODIUM 100 MG CAP PO SCH ×2 (07:55→20:02)
--- NOTE | 2022-03-25 05:31 | Obstetrical Progress Note ---
Date of Service <Judy Casas MD - Last Filed: 03/25/22 08:19> March 25, 2022 Assessment & Plan <Judy Casas MD - Last Filed: 03/25/22 08:19> (1) Vaginal delivery: 36 yo now PPD1 from at 40wk6d -If pt can have tubal ligation done by [employer] this hospitalization she will stay. If this is to be scheduled as outpatient then discharge today, instructions have been reviewed with patient. -Vitals reviewed- HDS, afebrile -Hg 9.4, stable -F/u in 6 weeks with OB <Jose Alejandro Araya MD - Last Filed: 03/26/22 08:25> (1) Vaginal delivery: Subjective <Judy Casas MD - Last Filed: 03/25/22 08:19> Ambulation: ambulating normally Voiding: no voiding problems Passing Gas:: Yes Diet Tolerance:: regular diet Lochia:: Small Feeding Type:: breast feeding Current Pain Level(1-10): 3 Pt doing well overall, no acute complaints or distress. Pain well controlled with medication. Pt inquiring whether her tubal ligation can be done while in the hospital or if she would have to come back as outpatient. Stated if she cannot have it done then she would like discharge today. Review of Systems Denies fever/chills. Denies dyspnea, cough. Denies chest pain. Denies breast pain or discharge. Denies dysuria. Denies headache. Denies back pain. Physical Exam <Judy Casas MD - Last Filed: 03/25/22 08:19> General: Alert, oriented, no acute distress Cardiac: Regular rate and rhythm, normal S1, S2. No murmurs appreciated. Respiratory: Clear to auscultation b/l with good air flow entry, symmetric chest rise and fall. No wheezes or crackles. No increased work of breathing or accessory muscle use Abdomen: Soft, nontender, nondistended. Fundus firm and palpable at 2 cm below umbilicus. No guarding or rebound. Skin: No rashes or lesions Extremities: Warm, dry, well-perfused with capillary refill <2s b/l. No lower extremity edema, erythema, swelling or calf tenderness b/l. Results & Data ([facility]) <Judy Casas MD - Last Filed: 03/25/22 08:19> Vital Signs (Past 12 Hours) Vital Signs Temp Pulse Resp BP BP Pulse Ox 03/25/22 04:46 36.7 C 98 H 24 113/75 97 03/24/22 23:00 36.7 C 100 H 24 123/77 98 03/24/22 20:14 36.7 C 97 H 24 127/86 98 <Jose Alejandro Araya MD - Last Filed: 03/26/22 08:25> Co-Signing Physician Notes Patient seen and evaluated with resident and agree with the above findings and plan. Doing well. Stable for discharge if preferred. Resident Activity Tracking <Judy Casas MD - Last Filed: 03/25/22 08:19> Resident Involvement: Resident Care Provided Care Provided: OB Delivery
[2022-03-25 06:49] LABS: Hematocrit (blood only) 28.6 % (37-47); Hemoglobin 9.4 g/dL (12.0-16.0)
[2022-03-25] MEDS: CETIRIZINE HCL 10 MG TABLET PO PRN (08:24)
[2022-03-25] MEDS: PRENATAL VITAMIN 1 TAB PO SCH (08:24)
[2022-03-25] MEDS: DOCUSATE SODIUM 100 MG CAP PO SCH (08:24)
[2022-03-25] MEDS ORDERED: bisacodyL 5 MG TABEC PO SCH (20:00)
== END 2022-03-25 14:40 | disposition home or self-care (01) | DRG 807 ==
LOC: 4S1 18:26 → 4E1 03-24 07:45